=== PATIENT | female | born 1960 | race Two or more races ===

== ENCOUNTER 2019-09-19 18:48 | Emergency (ER) | payer MEDICAID, OTHER ==
[~2019-09-19] VITALS: Ht 147.3 cm; Wt 65.3 kg
[2019-09-19 19:38] VITALS: BP 133/65
--- NOTE | 2019-09-19 19:54 | NUR ---
Patient discharged to home in stable condition. Written and verbal after care instructions given. Patient verbalizes understanding of instruction. PT AMBULATORY W/ STEADY GAITS
== END 2019-09-19 19:55 | disposition home or self-care (01) ==
LOC: ER 18:54
DX: S09.8XXA Other specified injuries of head, initial encounter (principal); W18.39XA Other fall on same level, initial encounter; Y93.89 Activity, other specified; Y92.89 Other specified places as the place of occurrence of the external cause; Y99.8 Other external cause status